=== PATIENT | female | born 1940 | race Caucasian/White ===

== ENCOUNTER 2019-05-30 19:41 | Inpatient (IN) | payer MEDICARE ==
[~2019-05-30] VITALS: Ht 165.1 cm; Wt 105.6 kg
[~2019-05-30 19:41] MED LIST: ALBUTEROL2.5 MG/0.5 INH; ALLOPURINOL 30300 M2 PO; APAP650 PO; ARTIFICIAL TEAR15 M3 OP; BENTYL20 MG; BYSTOLIC 5 MG5 M1 PO; CELEBREX 200 M200 M1 PO; COMPAZINE10 MG PO; CYMBALTA20 MG PO; FLAGYL500 MG PO; GLUCOTROL5 MG PO; HALDOL5 MG/1 ML IV; HUMALOG100 UNIT/1 SUBQ; HYDROCODONE-AP1 EAC6 PO; METFORMIN HCL500 MG PO; MIRALAX17 GM PO; NORVASC5 M1 PO; ONDANSETRON HCL4 M2 PO; OXYCODONE HCL 55 MG PO; PROTONIX40 M1 PO; PROTONIX40 M4 PO; VENTOLIN HFA 1818 GM INH; VENTOLIN HFA INH8 GM INH; VITAMIN D1000 UNI1 PO
[2019-05-30 19:47] VITALS: BP 156/58
[2019-05-30 20:39] LABS: ABSOLUTE BASOPHILS 0.1 thou/uL (0.0-0.2); ABSOLUTE EOSINOPHILS 0.1 thou/uL (0.0-0.7); ABSOLUTE LYMPHOCYTES 1.6 thou/uL (0.8-5.3); ABSOLUTE MONOCYTES 0.8 thou/uL (0.0-1.2); ABSOLUTE NEUTROPHILS 10.1 thou/uL (1.6-8.1); BASOPHILS 0.6 %; HEMATOCRIT 37.8 % (37.0-47.0); HEMOGLOBIN 11.8 gm/dL (12.0-15.0); LYMPHOCYTES 12.2 %; MCH 25.8 pg (26.0-34.0); MCHC 31.2 g/dL (28.0-37.0); MCV 82.7 fL (80.0-100.0); MONOCYTES 6.2 %; MPV 8.8 fl. (7.2-11.1); NUCLEATED RBCS 0 /100WBC; PLATELET COUNT* 297 thou/uL (150-400); RBC 4.57 mil/uL (4.20-5.00); RDW-CV 18.6 % (10.5-14.5); WBC 12.7 thou/uL (4.0-11.0)
[2019-05-30 20:47] LABS: ANION GAP 8 mmol/L (7-16); BUN 22 mg/dL (7-18); CALCIUM 9.6 mg/dL (8.5-10.1); CHLORIDE 99 mmol/L (98-107); CO2 29 mmol/L (21-32); CREATININE 0.9 mg/dL (0.6-1.3); GLUCOSE 132 mg/dL (70-99); POTASSIUM 4.1 mmol/L (3.5-5.1); SODIUM 136 mmol/L (136-145)
[2019-05-30 20:49] LABS: APTT 30.7 Seconds (25.0-31.3); INR 1.1; PROTIME 10.8 Seconds (9.20-11.50)
[2019-05-30 20:59] LABS: URINE BILIRUBIN NEGATIVE (Negative); URINE BLOOD NEGATIVE (Negative); URINE CLARITY CLEAR; URINE COLOR YELLOW; URINE GLUCOSE-RANDOM NEGATIVE (Negative); URINE KETONES NEGATIVE (Negative); URINE LEUKOCYTES-REFLEX NEGATIVE (Negative); URINE NITRITE-REFLEX NEGATIVE (Negative); URINE PROTEIN NEGATIVE (Negative); URINE SPECIFIC GRAVITY 1.025 (1.005-1.030); URINE UROBILINOGEN 0.2 E.U./dl (0.2-1.0)
--- NOTE | 2019-05-30 21:00 | NUR ---
ILEOSTOMY TO RIGHT ABD APPLIANCE CLEAN/DRY WITH LIQUID STOOL IN BAG
[2019-05-30 21:02] LABS: ALBUMIN 3.6 g/dL (3.4-5.0); ALKALINE PHOSPHATASE 81 U/L (46-116); CK-MB MASS 2.2 ng/mL (<0.5-3.6); NT-PRO BRAIN NAT PEPTIDE 270 pg/mL (<300); SGOT 16 U/L (15-37); SGPT 28 U/L (30-65); TOTAL BILIRUBIN 0.5 mg/dL (<0.1-1.0); TOTAL PROTEIN 7.5 g/dL (6.4-8.2); TROPONIN-I LEVEL <0.06 ng/mL (<0.06)
[2019-05-30 22:30] VITALS: BP 150/62
[2019-05-30 22:45] VITALS: BP 157/64
[2019-05-31] VITALS: BP 141/94
[2019-05-31 04:00] VITALS: BP 152/55
[2019-05-31] MEDS ORDERED: COZAAR 25 MG TA25 M1 PO (05:44)
[2019-05-31] MEDS ORDERED: LANTUS100 UNIT/M SUBQ (05:45)
[2019-05-31] MEDS ORDERED: AMARYL2 MG PO (05:45)
[2019-05-31] MEDS ORDERED: PLAVIX 75 MG TA75 M1 PO (05:46)
[2019-05-31] MEDS ORDERED: ALLOPURINOL 10100 M1 PO (05:46)
[2019-05-31] MEDS ORDERED: LIPITOR10 MG PO (05:47)
[2019-05-31] MEDS ORDERED: TYLENOL325 MG PO (05:48)
--- NOTE | 2019-05-31 06:47 | NUR ---
Patient progressing towards goals: vss on room air. Patient oriented to person, place, and partially situation. Patient denies pain and discomfort. Incontinent of urine. Incontinence check and luli care provided with repositioning q2h. Patient and daughter did not bring list of medications or bottles. Daughter recalled medications to the best of her ability and were updated in system per her recollection. call light within reach
[2019-05-31 08:00] VITALS: BP 171/63
--- NOTE | 2019-05-31 11:30 | NUR ---
MET WITH PT AND DTR/ANGELIC TO DISCUSS HOME SITUATION DC PLANNING. PT LIVES WITH ANGELIC, HER S/O AND SON. PT IS NORMALLY ABLE TO AMBULATE INDEPENDENTLY, HAS WALKER AND CANE IF NEEDED. SHE IS ABLE TO HELP WITH FOLDING LAUNDRY, DRESS HERSELF BUT DTR ASSISTS WITH SHOWER. PT IS CURRENT WITH [facility] . SHE FOLLOWS WITH DR KULKARNI BUT THEY ARE SEEKING NEW PCP, GAVE LIST AND DISCUSSED. PT DOESN'T HAVE A DPOA, GAVE INFO AND WILL DISCUSS MORE WITH PT ONCE SHE IS MORE ALERT. ALSO DISCUSSED MEDICAID, DTR HAS QUESTIONS, OFFERED [facility] TO ASSIST, SHE AGREED. CALLED AND LEFT VMAIL AND FAXED FACE SHEET TO [facility]. DTR STATED PT WILL GO HOME AT DC, NOT SNF, 'NEVER WANT THAT.' DTR IS A SPEECH THERAPIST. WILL FOLLOW
--- NOTE | 2019-05-31 11:49 | EKG ---
[place] [address] ELECTROCARDIOGRAM REPORT Name: RAJWINDER KRAUSE Room: [address] ADM IN M.R.#: [id number] Admission: 05/30/19 Attend Phys: Leticia Hills MD Discharge: Date of : 38 Report #: [id number] THIS REPORT FOR: //name// [facility] ED Test Date: 2019-05-30 Test Time: 19:47:44 Pat Name: RAJWINDER KRAUSE Department: Room: [facility] Gender: F Set Up Technician: SAJI : 1940 Requested By: Jori Shabazz Order Number: [id number] MD: Rocky Sands Measurements Intervals [place] Rate: 83 P: -54 [place]: 148 QRS: -41 QRSD: 105 T: 126 QT: 394 QTc: 463 Interpretive Statements Sinus or ectopic atrial rhythm LVH with secondary repolarization abnormality Anterior infarct, old possible Compared to ECG 03/23/2016 18:41:14 Early repolarization now present Myocardial infarct finding still present Electronically Signed On 05-31-2019 11:49:22 CDT by Rocky Sands [email or web address] <ELECTRONICALLY SIGNED> By: Rocky Sands MD, [facility] 05/31/19 1149 1947 46 Rocky Sands MD, [facility] /EPI
[2019-05-31 12:22] LABS: BE 1.5 mmol/L (-2 to +3); PCO2 49.1 mmHg (35.0-45.0); PO2 69.1 mmHg (75.0-100.0); pH 7.365 (7.340-7.450)
[2019-05-31 12:46] VITALS: BP 139/49
[2019-05-31 16:00] VITALS: BP 148/67
--- NOTE | 2019-05-31 17:59 | NUR ---
PATIENT TAKING PO WELL DENIES DISTRESS VERY TIRED ACTING AROUSES EASILY. PROGRESSING SLOWLY.
[2019-05-31 20:00] VITALS: BP 161/68
[2019-06-01] VITALS: BP 166/71
[2019-06-01 04:00] VITALS: BP 171/62
[2019-06-01 04:34] LABS: ABSOLUTE EOSINOPHILS 0.3 thou/uL (0.0-0.7); ABSOLUTE LYMPHOCYTES 1.6 thou/uL (0.8-5.3); ABSOLUTE MONOCYTES 0.5 thou/uL (0.0-1.2); ABSOLUTE NEUTROPHILS 4.8 thou/uL (1.6-8.1); BASOPHILS 0.6 %; EOSINOPHILS 4.1 %; LYMPHOCYTES 22.6 %; MCHC 31.2 g/dL (28.0-37.0); MCV 83.5 fL (80.0-100.0); MONOCYTES 7.4 %; MPV 8.8 fl. (7.2-11.1); NUCLEATED RBCS 0 /100WBC; PLATELET COUNT* 226 thou/uL (150-400); POLYS 65.3 %; RBC 3.83 mil/uL (4.20-5.00); RDW-CV 18.4 % (10.5-14.5); WBC 7.3 thou/uL (4.0-11.0)
[2019-06-01 05:08] LABS: CALCIUM 8.7 mg/dL (8.5-10.1); CREATININE 0.9 mg/dL (0.6-1.3)
[2019-06-01 08:00] VITALS: BP 198/70
[2019-06-01 11:46] VITALS: BP 153/58
[2019-06-01 15:14] VITALS: BP 152/52
--- NOTE | 2019-06-01 18:33 | NUR ---
RECEIVED REPORT FROM WILL RN. ASSUMED CARE OF PT AROUND 729. PT A&O X4, BUT CONFUSED AND FORGETFUL AT TIMES. UTILITY BILL COMPLAINTS INVESTIGATOR IN PLACE TRACING SR WITH NO CHANGES THIS SHIFT. AM ASSESSMENT AND VITALS COMPLETED CHARTED. IV INTACT. MEDS PER EMAR. PT RECEIVED TYLENOL THIS AM FOR C/O BACK PAIN, EFFECTIVE. PT UP WITH ASSIST TO BEDSIDE COMMODE, ALSO INCONTINENT. ILLEOSTOMY EMPTIED, OUTPUT THICK LIQUID BROWN. PT TOLERATING DIET, APPETITE GOOD. FAMILY VISITED THIS AFTERNOON. EEG COMPLETED, SEE REPORT. PLAN IS FOR PT TO HAVE MRI MONDAY. PT CURRENTLY SITTING UP IN BEDSIDE CHAIR. FALL PRECAUTIONS IN PLACE. CALL LIGHT IS WITHIN REACH. HOURLY ROUDNING PERFORMED.
[2019-06-01 20:00] VITALS: BP 165/73
[2019-06-02] VITALS: BP 142/46
[2019-06-02 04:51] LABS: ABSOLUTE EOSINOPHILS 0.4 thou/uL (0.0-0.7); ABSOLUTE LYMPHOCYTES 1.9 thou/uL (0.8-5.3); ABSOLUTE MONOCYTES 0.5 thou/uL (0.0-1.2); ABSOLUTE NEUTROPHILS 4.4 thou/uL (1.6-8.1); BASOPHILS 0.4 %; EOSINOPHILS 5.2 %; HEMATOCRIT 31.8 % (37.0-47.0); HEMOGLOBIN 9.9 gm/dL (12.0-15.0); LYMPHOCYTES 26.2 %; MCH 26.2 pg (26.0-34.0); MCHC 31.2 g/dL (28.0-37.0); MCV 83.9 fL (80.0-100.0); MONOCYTES 6.7 %; MPV 8.7 fl. (7.2-11.1); NUCLEATED RBCS 0 /100WBC; PLATELET COUNT* 235 thou/uL (150-400); POLYS 61.5 %; RBC 3.79 mil/uL (4.20-5.00); RDW-CV 18.6 % (10.5-14.5); WBC 7.2 thou/uL (4.0-11.0)
[2019-06-02 05:04] LABS: ANION GAP 4 mmol/L (7-16); BUN 16 mg/dL (7-18); CALCIUM 9.4 mg/dL (8.5-10.1); CHLORIDE 106 mmol/L (98-107); CHOLESTEROL 127 mg/dL (<200); CO2 31 mmol/L (21-32); CREATININE 0.9 mg/dL (0.6-1.3); GLUCOSE 116 mg/dL (70-99); HDL CHOLESTEROL 41 mg/dL (>40); LDL CHOLESTEROL 45 mg/dL (<100); MAGNESIUM 1.7 mg/dL (1.8-2.4); PHOSPHORUS* 3.2 mg/dL (2.5-4.9); POTASSIUM 3.8 mmol/L (3.5-5.1); SODIUM 141 mmol/L (136-145); TC:HDL 3.1 Ratio (Not establshd); TRIGLYCERIDE 206 mg/dL (<150); VLDL 41 mg/dL (<40)
[2019-06-02 05:05] LABS: SERUM ASSESSMENT Slight Lipemia
--- NOTE | 2019-06-02 06:54 | NUR ---
PT BP ELEVATED APPROX 0400 GIVEN MEDICATION, BP RECHECK BP WAS TRENDING DOWN.
[2019-06-02 08:00] VITALS: BP 164/55
[2019-06-02 11:20] VITALS: BP 177/60
[2019-06-02 15:14] VITALS: BP 198/75
--- NOTE | 2019-06-02 16:46 | NUR ---
PT UP IN CHAIR MOST OF SHIFT. PT ASSISTED TO BSC. TOLERATING PO WELL. BP ELEVATED,CHANGE IN MEDS PER .PLAN FOR MRI IN AM.
[2019-06-02 20:00] VITALS: BP 197/71
[2019-06-02 23:06] LABS: GLYCOHEMOGLOBIN (HGB A1C) 7.5 % (4.8-5.6)
[2019-06-03] VITALS: BP 180/68
[2019-06-03 04:00] VITALS: BP 219/78
--- NOTE | 2019-06-03 07:35 | NUR ---
PT BP ELEVATED THROUGHOUT SHIFT, MEDICATION GIVEN WITH A DECREASE IN BLOOD PRESSURE NOTED. INFORMATION PASSED ON.
[2019-06-03 08:00] VITALS: BP 147/56
--- NOTE | 2019-06-03 10:00 | NUR ---
ASSUMED CARE OF PT AT 0730. PT RESTING IN RECLINER WAITING FOR BREAKFAST. PT A&0X4, FORGETFUL AT TIMES. PT DENIES ANY PAIN OR SHORTNESS OF BREATH AT THIS TIME. PT TRACING SR ON THE MALT HOUSE LOADER. ON 2L NC SAT 97%. ILEOSTOMY TO DEPENDENT DRAINAGE. PT UP WITH 1 ASSIST AND WALKER TO BATHROOM. PT GOAL FOR TODAY IS COMPLETE MRI HEAD, MAINTAIN SBP LESS THAN 150, MEDICATION ADJUSTMENTS FOR BLOOD PRESSURE AND WORK WITH PT AND OT. AM ASSESSMENT CHARTED. MEDICATIONS PER DEC. PT REPOSITIONED EVERY 2 HOURS FOR COMFORT. HOURLY ROUNDING OBSERVED. BED IN LOW POSITION. CALL LIGHT WITHIN REACH. WILL CONTINUE PLAN OF CARE.
[2019-06-03 11:25] VITALS: BP 167/70
[2019-06-03 12:00] VITALS: BP 172/59
--- NOTE | 2019-06-03 16:31 | NUR ---
I have reviewed the documentation by SADIE ALDRICH from TODAY to 06/03/19 and I concur with it. SANDRA CHONG
[2019-06-03 20:00] VITALS: BP 178/75
[2019-06-04] VITALS (7 sets, daily range): BP systolic 138–180; BP diastolic 51–68
--- NOTE | 2019-06-04 01:20 | NUR ---
PT ALERT ORIENTED. TRANSFERED FROM BED TO CHAIR WITH 2 PERSON ASSIST. INCONTINENT OF URINE. TELEMETRY SHOWS SR. MN BP 180/64 HYDRALAZINE GIVEN. TELEMETRY SHOWS SR. O2 AT 2 LITERS NC.
--- NOTE | 2019-06-04 04:27 | NUR ---
BP DOWN TO 166/57 AFTER HYDRALAZINE. RESTING QUIETLY.
--- NOTE | 2019-06-04 10:00 | NUR ---
ASSUMED CARE OF PT AT 0730. PT SITTING IN RECLINER WAITING FOR BREAKFAST. PT A&0X4, FORGETFUL AT TIMES. TRACING SR ON THE SAWMILL MANAGER. PT COMPLAINS OF PAIN TO HEAD, TREATED WITH PRN TYLENOL WITH RELIEF. PT ON 2L NC SAT 98%. PT UP WITH 1 ASSIST AND WALKER TO BATHROOM. PT GOAL FOR TODAY IS TITRATE OXYGEN AND DISCHARGE PLANNING TO HOME. AM ASSESSMENT CHARTED. MEDICATIONS PER MAR. PT REPOSITIONED EVERY 2 HOURS FOR COMFORT. HOURLY ROUNDING OBSERVED. BED IN LOW POSITION. BED ALARM IN PLACE. FALL PRECAUTIONS IN PLACE. CALL LIGHT WITHIN REACH. WILL CONTINUE PLAN OF CARE.
[2019-06-04] MEDS ORDERED: LIPITOR10 MG PO (12:14)
[2019-06-04] MEDS ORDERED: IRON325 PO (12:14)
[2019-06-04] MEDS ORDERED: NORVASC10 MG PO (12:15)
[2019-06-04] MEDS ORDERED: CHLORTHALIDONE25 MG PO (12:15)
[2019-06-04] MEDS ORDERED: COZAAR 25 MG TA25 M1 PO (12:16)
[2019-06-04] MEDS ORDERED: SYNTHROID50 MCG PO (12:17)
--- NOTE | 2019-06-04 15:20 | NUR ---
Pt to dc home today with dtr and HH services to follow. SW met with pt and discussed plan; pt said she feels confident in going home today. SW called pt dtr and discussed safe dc planning; pt dtr to be here to provide pt ride home. REJI discussed pt current with [facility] and pt and pt dtr want to continue with [facility]. SW faxed orders to resume care and referral info. No other dc needs expressed.
--- NOTE | 2019-06-04 17:16 | NUR ---
DISCHARGE ORDERS RECEIVED. DISCHARGE INSTRUCTIONS, CARE NOTES, SCRIPTS AND FOLLOW UP APPTS GIVEN TO PT. PT COMMUNICATES UNDERSTANDING OF DISCHARGE TEACHING. DAUGHTER AT BEDSIDE DURING EDUCATION. PIPELINER REMOVED. POWER PORT DEACCESSED WITH HEPARIN AND REMOVED WITHOUT DIFFICULTIES. PT HAD 02 REST AND EXERCISE SAT AND PT DOESNT REQUIRE OXYGEN. PT DISCHARGED WITH ALL BELONGINGS AND PAPERWORK VIA WHEELCHAIR WITH NURSING STAFF TO DAUGHTERS OWN PERSONAL VEHICLE.
--- NOTE | 2019-06-06 10:45 | EEG ---
[address] [address] EEG STUDY REPORT Name: RAJWINDER KRAUSE Room: [address] IN .R#: [id number] Admission: 05/30/19 Attend Phys: Leticia Hills MD Discharge: 06/04/19 Date of : 38 Report #: [id number] THIS REPORT FOR: //name// CC: Leticia Tracy DATE OF SERVICE: 06/01/2019 REASON FOR STUDY: This patient is being evaluated for altered mental status. FINDINGS: EEG was done by placing the electrode by 10-20 system of electrode placement. Both referential and sequential montages were used for recording. Background activity in this patient's EEG is up to 9 Hz and 30 microvolt. The patient went to sleep and that was associated with bilateral slowing and vertex sharp waves. Photic stimulation was unremarkable. Throughout the record, no active epileptiform activity was noticed. IMPRESSION: This patient's EEG is intermixed with moderate amount of intermixed slowing. That is a nonspecific abnormality, which can occur with dementia, effect of psychotropic medications, or encephalopathy. Clinical correlation is recommended. Thank you very much for this referral. <ELECTRONICALLY SIGNED> By: Trent Almonte MD 06/06/19 1045 1710 [id number] Almonte MD /nt
--- NOTE | 2019-06-06 10:45 | CON ---
[facility] [address] [place] [address] CONSULTATION Name: RAJWINDER KRAUSE Room: [address] IN M.R.#: [id number] Admission: 05/30/19 Attend Phys: Leticia Hills MD Discharge: 06/04/19 Date of : 38 Report #: [id number] THIS REPORT FOR: //name// CC: Leticia Tracy DATE OF SERVICE: 05/31/2019 HISTORY OF PRESENT ILLNESS: This is a 78-year-old female patient who is not able to provide much history. Initially when I saw this patient, the patient is not able to provide any history. Then I called the patient's daughter and discussed the patient with her. She said that the patient is becoming weaker in the last 3-4 days. She is also becoming somewhat confused. She does that when she gets bladder infection. She sometimes uses a walker but she is getting weaker and weaker. She had an MRI done. REVIEW OF SYSTEMS: Indicates she has a history of hypertension, GERD, gout, diabetes mellitus, has some problem with sigmoid mass. She has a portal. This was a relevant 14-point review of system. PAST MEDICAL HISTORY: Positive for possible transient ischemic attack that was in 2015, but they never found any definite evidence for this. FAMILY HISTORY: Negative for early age strokes. SOCIAL HISTORY: She lives with her daughter. According to her she does not drink any alcohol. PHYSICAL EXAMINATION: Indicate that she is alert. She is responsive. She can follow simple commands, but her memory is poor. Her fund of knowledge is poor. She is slow in responding. Cranial nerve examination 2-12 was attempted. It is very difficult to tell. She moves all 4 extremities. Her position sense appeared to be present. Reflexes are somewhat diminished. There is no meningeal sign. There is no carotid bruit. There is no thyroid mass. She is moderately built individual. Pulses are difficult to feel. White count is 12.7. No respiratory difficulty. Cardiac examination is unremarkable. Blood pressure is 139/49, respirations 16, pulse 81, temperature is 98.3. She did have a CT scan of the head which showed some atrophy. IMPRESSION: Difficult to form in this patient, but with increased white count this is probably encephalopathy. SCRAP CRANE OPERATOR infection is unlikely, but cannot be fully excluded. We will see if she improves with antibiotics. Because of the difficulty with walking, I will get an MRI of the brain and spine. If she continued to improve, we may not have to do much. If she does not improve much, [place] [address] CONSULTATION Name: RAJWINDER KRAUSE Room: [address] IN .R.#: [id number] Admission: 05/30/19 Attend Phys: Leticia Hills MD Discharge: 06/04/19 Date of : 38 Report #: [id number] then we may have to do further workup. Dr. Wen will follow up this patient with you from tomorrow. <ELECTRONICALLY SIGNED> By: Trent Almonte MD 06/06/19 1045 1444 [id number] Almonte MD /nt
== END 2019-06-04 17:17 | disposition home health service (06) | DRG 70 ==
LOC: M.ERS 19:41 → M.TBA-ER 21:07 → M.2W 21:07
PROVIDERS: Family Medicine; Internal Medicine; ADMIT Internal Medicine
DX: G93.41 Metabolic encephalopathy (principal); R65.11 Systemic inflammatory response syndrome (SIRS) of non-infectious origin with acute organ dysfunction; E66.2 Morbid (severe) obesity with alveolar hypoventilation; K21.9 Gastro-esophageal reflux disease without esophagitis; M10.9 Gout, unspecified; E86.0 Dehydration; I12.9 Hypertensive chronic kidney disease with stage 1 through stage 4 chronic kidney disease, or unspecified chronic kidney disease; N18.3 Chronic kidney disease, stage 3 (moderate); E11.22 Type 2 diabetes mellitus with diabetic chronic kidney disease; D50.9 Iron deficiency anemia, unspecified; E83.42 Hypomagnesemia; E78.5 Hyperlipidemia, unspecified; E03.9 Hypothyroidism, unspecified; F03.90 Unspecified dementia, unspecified severity, without behavioral disturbance, psychotic disturbance, mood disturbance, and anxiety; Z88.0 Allergy status to penicillin; Z79.899 Other long term (current) drug therapy; Z91.19 Patient's noncompliance with other medical treatment and regimen; Z85.038 Personal history of other malignant neoplasm of large intestine; Z90.49 Acquired absence of other specified parts of digestive tract; Z93.2 Ileostomy status; Z68.38 Body mass index [BMI] 38.0-38.9, adult

== ENCOUNTER 2019-11-25 13:48 | Observation (INO) | payer MEDICARE ==
[~2019-11-25] VITALS: Ht 165.1 cm; Wt 103.9 kg
[~2019-11-25 13:48] MED LIST changes: +ALLOPURINOL 10100 M1 PO; +AMARYL2 MG PO; +CHLORTHALIDONE25 MG PO; +COZAAR 25 MG TA25 M1 PO; +IRON325 PO; +LANTUS100 UNIT/M SUBQ; +LIPITOR10 MG PO; +NORVASC10 MG PO; +PLAVIX 75 MG TA75 M1 PO; +SYNTHROID50 MCG PO; -VENTOLIN HFA 1818 GM INH
[2019-11-25 14:05] VITALS: BP 141/62
[2019-11-25 14:17] LABS: ABSOLUTE BASOPHILS 0.1 thou/uL (0.0-0.2); ABSOLUTE EOSINOPHILS 0.2 thou/uL (0.0-0.7); ABSOLUTE LYMPHOCYTES 1.8 thou/uL (0.8-5.3); ABSOLUTE MONOCYTES 0.5 thou/uL (0.0-1.2); ABSOLUTE NEUTROPHILS 5.6 thou/uL (1.6-8.1); BASOPHILS 1.1 %; EOSINOPHILS 1.8 %; HEMATOCRIT 41.5 % (37.0-47.0); HEMOGLOBIN 13.7 gm/dL (12.0-15.0); LYMPHOCYTES 22.1 %; MCH 30.8 pg (26.0-34.0); MCHC 32.9 g/dL (28.0-37.0); MCV 93.4 fL (80.0-100.0); MONOCYTES 6.2 %; NUCLEATED RBCS 0 /100WBC; PLATELET COUNT* 268 thou/uL (150-400); POLYS 68.8 %; RBC 4.44 mil/uL (4.20-5.00); RDW-CV 16.2 % (10.5-14.5); WBC 8.2 thou/uL (4.0-11.0)
[2019-11-25 14:27] LABS: CALCIUM 9.1 mg/dL (8.5-10.1); CREATININE 1.1 mg/dL (0.6-1.3); POTASSIUM 4.1 mmol/L (3.5-5.1)
[2019-11-25 14:37] LABS: ALBUMIN 3.8 g/dL (3.4-5.0); TOTAL BILIRUBIN 0.2 mg/dL (<0.1-1.0); TOTAL PROTEIN 7.6 g/dL (6.4-8.2)
[2019-11-25 14:57] LABS: INR 1.1; PROTIME 10.8 Seconds (9.20-11.50)
[2019-11-25 15:51] LABS: URINE BILIRUBIN NEGATIVE (Negative); URINE BLOOD NEGATIVE (Negative); URINE CLARITY CLEAR; URINE COLOR YELLOW; URINE GLUCOSE-RANDOM 2+ (Negative); URINE KETONES NEGATIVE (Negative); URINE LEUKOCYTES-REFLEX NEGATIVE (Negative); URINE NITRITE-REFLEX NEGATIVE (Negative); URINE PROTEIN NEGATIVE (Negative); URINE SPECIFIC GRAVITY 1.025 (1.005-1.030); URINE UROBILINOGEN 0.2 E.U./dl (0.2-1.0)
[2019-11-25] MEDS ORDERED: PLAVIX 75 MG TA75 MG PO (16:52)
[2019-11-25] MEDS ORDERED: ABILIFY 2 MG2 M1 PO (16:52)
[2019-11-25] MEDS ORDERED: OXYBUTYNIN 5 MG5 M2 PO (16:53)
[2019-11-25] MEDS ORDERED: LEVEMIR100 UNIT/1 (16:53)
[2019-11-25] MEDS ORDERED: VITAMIN D (16:54)
[2019-11-25] MEDS ORDERED: MULTIVITAMIN (16:54)
[2019-11-25 18:49] LABS: CHOLESTEROL 179 mg/dL (<200); HDL CHOLESTEROL 37 mg/dL (>40); TC:HDL 4.8 Ratio (Not establshd); TRIGLYCERIDE 414 mg/dL (<150); VLDL 83 mg/dL (<40)
[2019-11-25 18:51] LABS: SERUM ASSESSMENT Clear
--- NOTE | 2019-11-25 20:00 | NUR ---
RECEIVED REPORT AND ASSUMED CARE OF PT. ASSESSMENT COMPLETED. PT BOARDING IN ER. CHAIR MECHANIC ON SHOWING SR. ILEOSTOMY EMPTIED OF 300 LIQ STOOL. FAMILY AT BEDSIDE AND DGT STATES PT'S NOSE SEEMS ASYMETRICAL TO HER. WILL CONT TO MONITOR AND ASSIST NEEDED.
[2019-11-26] VITALS (8 sets, daily range): BP systolic 120–187; BP diastolic 53–76
--- NOTE | 2019-11-26 05:10 | NUR ---
SLEPT WELL TONIGHT. ASSISTED TO BSC TO VOID. NO CHANGE IN ASSESSMENT. CONT TO SHOW SR. REMAINS BOARDING IN ER, HOURLY ROUNDING OBSERVED.
--- NOTE | 2019-11-26 11:13 | NUR ---
SPOKE WITH DR. GUAJARDO VIA PHONE, LIZA SINGH WITH REGULAR DIET.
--- NOTE | 2019-11-26 13:17 | NUR ---
CM ASSESSMENT: VISITED WITH PT IN THE ED. PT ON O2 AND IS PLANNED TO BE DISCHARGED TODAY. AWAITING RT EXERCISE STUDY TO SEE IF PT QUALIFIES FOR HOME O2. WILL DISCUSS HH OPTIONS WITH DTR. PT LIVES WITH HER DTR-RECENTLY MOVED HERE FROM [place]. PT USES A CANE AND OCASSIONALLY A WALKER.
--- NOTE | 2019-11-26 13:44 | NUR ---
PT PROVIDED WALKER FOR EX OX WITH RT.
--- NOTE | 2019-11-26 14:16 | NUR ---
PT DOES NOT QUALIFY FOR HH. PT AMBULATES STEADILY WITH WALKER. NO HH NEEDS.
[2019-11-26] MEDS ORDERED: TYLENOL325 MG PO (15:34)
[2019-11-26] MEDS ORDERED: VENTOLIN HFA 1818 GM INH (15:35)
--- NOTE | 2019-11-26 17:06 | NUR ---
I have reviewed the documentation by OTF HIGGINS from 11/26/19 to 11/26/19 and I concur with it. AMARILYS PABLO
--- NOTE | 2019-11-27 13:57 | EKG ---
[place] [address] ELECTROCARDIOGRAM REPORT Name: RAJWINDER KRAUSE Room: [address]#: [id number] Admission: 11/25/19 Attend Phys: Jolly Herrera Discharge: 11/26/19 Date of : 38 Date of Service: 11/25/19 1354 Report #: [id number] THIS REPORT FOR: cc: YESSENIA METCALF NP, RUTENDO NP Holkins, John M. 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[facility] : 1940 Requested By: Lou Sosa Order Number: [id number] : Rocky Sands Measurements Intervals [place] Rate: 87 P: -73 [place]: 167 QRS: -47 QRSD: 104 T: 107 QT: 379 QTc: 456 Interpretive Statements Sinus or ectopic atrial rhythm LAD, consider left anterior fascicular block Abnormal R-wave progression, late transition LVH with secondary repolarization abnormality Compared to ECG 05/30/2019 19:47:44 Myocardial infarct finding no longer present Electronically Signed On 11-26-2019 12:40:41 REVERSER by Rocky Sands [email or web address] <ELECTRONICALLY SIGNED> By: Rocky Sands MD, [facility] 11/26/19 1240 1354 1354 Rocky Sands MD, [facility] /EPI
== END 2019-11-26 17:30 | disposition home or self-care (01) ==
LOC: M.ERS 13:48 → M.TBA-ER 16:53
PROVIDERS: Personal Emergency Response Attendant; ADMIT Internal Medicine
DX: R42 Dizziness and giddiness (principal); R29.810 Facial weakness; E11.9 Type 2 diabetes mellitus without complications; I10 Essential (primary) hypertension; E78.5 Hyperlipidemia, unspecified; E86.0 Dehydration; K21.9 Gastro-esophageal reflux disease without esophagitis; Z86.73 Personal history of transient ischemic attack (TIA), and cerebral infarction without residual deficits; G43.909 Migraine, unspecified, not intractable, without status migrainosus

== ENCOUNTER 2021-03-25 21:45 | Inpatient (IN) | payer MEDICARE ==
[~2021-03-25] VITALS: Ht 157.5 cm; Wt 102.1 kg
[~2021-03-25 21:45] MED LIST changes: +ABILIFY 2 MG2 M1 PO; -BYSTOLIC 5 MG5 M1 PO; +BYSTOLIC10 MG PO; +LEVEMIR100 UNIT/1 SUBQ; +MULTIVITAMIN; +OXYBUTYNIN 5 MG5 M2 PO; +PLAVIX 75 MG TA75 MG PO; +TYLENOL EXTRA500 MG PO; +VENTOLIN HFA 1818 GM INH; +VITAMIN D
[2021-03-25 21:58] VITALS: BP 147/59
[2021-03-25 23:01] LABS: ABSOLUTE LYMPHOCYTES 0.8 thou/uL (0.8-5.3); ABSOLUTE MONOCYTES 0.7 thou/uL (0.0-1.2); ABSOLUTE NEUTROPHILS 7.4 thou/uL (1.6-8.1); BASOPHILS 0.5 %; EOSINOPHILS 0.5 %; HEMATOCRIT 36.4 % (37.0-47.0); HEMOGLOBIN 12.3 gm/dL (12.0-15.0); LYMPHOCYTES 8.5 %; MCH 30.7 pg (26.0-34.0); MCHC 33.8 g/dL (28.0-37.0); MCV 90.9 fL (80.0-100.0); MONOCYTES 8.1 %; MPV 8.6 fl. (7.2-11.1); NUCLEATED RBCS 0 /100WBC; PLATELET COUNT* 229 thou/uL (150-400); POLYS 82.4 %; RDW-CV 15.3 % (10.5-14.5); WBC 8.9 thou/uL (4.0-11.0)
[2021-03-25 23:09] LABS: CALCIUM 9.7 mg/dL (8.5-10.1); CREATININE 1.1 mg/dL (0.6-1.3); POTASSIUM 4.2 mmol/L (3.5-5.1)
[2021-03-25 23:13] LABS: ALBUMIN 3.7 g/dL (3.4-5.0); MAGNESIUM 1.7 mg/dL (1.8-2.4); TOTAL BILIRUBIN 0.2 mg/dL (<0.1-1.0); TOTAL PROTEIN 7.6 g/dL (6.4-8.2)
[2021-03-25 23:25] LABS: URINE BLOOD 3+ (Negative); URINE COLOR YELLOW; URINE GLUCOSE-RANDOM NEGATIVE (Negative); URINE KETONES TRACE (Negative); URINE LEUKOCYTES 2+ (Negative); URINE NITRITE POSITIVE (Negative); URINE PROTEIN 2+ (Negative); URINE SPECIFIC GRAVITY 1.025 (1.005-1.030); URINE UROBILINOGEN 0.2 E.U./dl (0.2-1.0)
[2021-03-25 23:27] LABS: ICTOTEST (BILI CONFIRMATORY) Negative (Negative); URINE BILIRUBIN 1+ (Negative); URINE CLARITY CLOUDY
[2021-03-25 23:32] LABS: BACTERIA >30 Many /HPF (None Seen); CASTS None Seen /LPF (None Seen); CRYSTALS None Seen /LPF (None Seen); MUCUS 0-3 Light strn/LPF (None Seen); SQUAMOUS 0-3 Few /LPF (0-3); URINE RBC >20 Many /HPF (0-2); URINE WBC >25 Many /HPF (0-5); WBC CLUMPS Moderate (None Seen)
[2021-03-25] MEDS ORDERED: MACROBID 100 M100 MG PO (23:53)
[2021-03-26 00:15] VITALS: BP 140/58
[2021-03-26 01:09] VITALS: BP 125/58
--- NOTE | 2021-03-26 01:29 | NUR ---
0030 ALERT AND ORIENTED X 4 FEMALE PATIENT TO ROOM 102 BY CART FROM ER IN STABLE CONDITION. FAMILY STATED TO ER THAT PATIENT WAS FORGETFUL AT TIMES BUT THIS WAS NOT SEEN DURING ADMISSION. TRANFERED FROM CART TO BED WITH MIN/MOD ASSIST SUPINE TO SIT, MIN SIT TO STAND AND CGA TO TURN TO BED AND LIE DOWN. NOTED RIGHT CHEST PORTACATH PRESENT AND HAS BEEN ACCESSED WITH FLUIDS RUNNING. ILEOSTOMY RLQ WITH OSTOMY POUCH INTACT. WEARING A BRIEF. SCANT PINKNESS PANNUS AND BILAT GROINS. SOUR ODOR. WIPES USED TO CLEAN AREAS. SKIN INTACT. ADMISSION ROUTINES IN PROGRESS. VITAL SIGNS STABLE. SCD'S APPLIED PER PROTOCOL. FALL PRECAUTIONS IN PLCE. CONTINUE TO MONITOR.
[2021-03-26] MEDS ORDERED: AZO CRANBERRY1 EACH PO (01:42)
--- NOTE | 2021-03-26 04:48 | NUR ---
PATIENT RESTING QUIETLY FROM ARRIVAL TO UNIT. HAS DENIED NAUSEA. NO VOMITING. NO PAIN. FALL PRECAUTIONS IN PLACE. CONTINUE TO MONITOR.
[2021-03-26 08:00] VITALS: BP 168/78
--- NOTE | 2021-03-26 14:09 | NUR ---
Pt is A&O. Resides at home with dtr. Independent. Pt has a walker and cane that she can use for mobility. Hx of [facility]. No hx of SNF. Pt requires some assistance with ADLs. Anticipate dc to home tomorrow. If Pt needs HH, fax facesheet, H&P and orders to [facility] [phone]
--- NOTE | 2021-03-26 16:39 | EKG ---
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[place] : 1940 Requested By: Tawanna Peoples Order Number: [id number] MD: Rocky Sands Measurements Intervals [place] Rate: 73 P: 47 ID: 163 QRS: -38 QRSD: 107 T: 149 QT: 415 QTc: 458 Interpretive Statements Sinus rhythm LVH with secondary repolarization abnormality Anterior Q waves, possibly due to LVH Compared to ECG 11/25/2019 13:54:10 Q waves now present Minor ST-T changes have occurred Electronically Signed On 03-26-2021 16:39:23 CDT by Rocky Sands [email or web address] <ELECTRONICALLY SIGNED> By: Rocky Sands MD, FAC 03/26/21 1639 57 57 Rocky Sands MD, [facility] /EPI
--- NOTE | 2021-03-26 18:51 | NUR ---
PT ALERT AND ORINETED TO SITUATION. VSS AFEBRILE. PT SLEPT MOST OF THE DAY SHE WOKE UP TO EAT ALL THREE MEALS. PT HAS NOT GOTTEN OUT OF BED EXCEPT TO GO TO THE BATHROOM. RIGHT CHEST PORT A CATH FLUSHES WELL POSIITIVE BLOOD RETURN NOTED. WILL CONTINUE TO MONITOR PLAN OF CARE.
[2021-03-26 21:02] VITALS: BP 175/58
[2021-03-27 04:12] LABS: WBC 5.9 thou/uL (4.0-11.0)
[2021-03-27 04:14] LABS: HEMATOCRIT 35.8 % (37.0-47.0); MCH 31.1 pg (26.0-34.0); MCHC 33.5 g/dL (28.0-37.0); MCV 92.8 fL (80.0-100.0); NUCLEATED RBCS 0 /100WBC; PLATELET COUNT* 232 thou/uL (150-400); RBC 3.86 mil/uL (4.20-5.00); RDW-CV 15.6 % (10.5-14.5)
[2021-03-27 04:23] LABS: CALCIUM 9.2 mg/dL (8.5-10.1); POTASSIUM 4.4 mmol/L (3.5-5.1)
--- NOTE | 2021-03-27 04:30 | NUR ---
PT SLEPT WELL THIS SHIFT. SHE REPORTED A HEADACHE AROUND 2100, TYLENOL GIVEN. SHE DID NOT REPORT ANY MORE PAIN, SOB, NAUSEA OR DISCOMFORT. SHE IS UP WITH ASSISTANCE AND GAITBELT AND CANE; ALERT AND ORIENTED; ROOM AIR. SHE RECEIVED ALL MEDS SCHEDULED. ILEOSTOMY IN PLACE. WILL CONTINUE TO MONITOR.
[2021-03-27 05:59] LABS: ABSOLUTE EOSINOPHILS 0.4 thou/uL (0.0-0.7); ABSOLUTE LYMPHOCYTES 1.9 thou/uL (0.8-5.3); ABSOLUTE MONOCYTES 0.4 thou/uL (0.0-1.2); ABSOLUTE NEUTROPHILS 3.2 thou/uL (1.6-8.1); ANISOCYTOSIS 1+; HYPOCHROMASIA 1+; PLATELET ESTIMATE ADEQUATE
[2021-03-27 06:00] LABS: LARGE PLATELETS OCCASIONAL
[2021-03-27 08:00] VITALS: BP 168/63
[2021-03-27 16:00] VITALS: BP 138/57
--- NOTE | 2021-03-27 17:55 | NUR ---
PATIENT RESTING IN BED, WATCHING TV. NO C/O PAIN/DISCOMFORT. BRUISING TO FEET. ILEOSTOMY INPLACE TO RIGHT LOWER ABDOMEN, DRAINING WITHOUT COMPLICATIONS. PORT TO RIGHT CHEST, PATENT, DRESSING C/D/I. BED IN LOW/LOCKED POSTION. CALL LIGHT WITHIN REACH. BLOOD SUGARS MONITORED. NO INSULIN ORDERED. NO QUESTIONS OR CONCERNS VOICED.
[2021-03-27 20:00] VITALS: BP 152/60
[2021-03-28 04:30] VITALS: BP 191/67
--- NOTE | 2021-03-28 07:40 | NUR ---
Alert and oriented x 4 but can be forgetful. She is up with assist x1,walker and gaitbelt. She wears briefs and is incontinent of urine. She has a ileostomy and she does self care. It appeared pretty full this am but she said it wasn't yet. She had tylenol at HS for headache. She prn hydralazine this am for HTN. She has slept well.
[2021-03-28 08:00] VITALS: BP 196/73
[2021-03-28 16:17] VITALS: BP 149/57
--- NOTE | 2021-03-28 17:45 | NUR ---
PATIENT RESTING IN BED. BED IN LOW/LOCKED POSITION, BED ALARM ON. CALL LIGHT WITHIN REACH. ILEOSTOMY TO LEFT LOWER ABDOMEN, PATENT, DRAINING TO DEPENDENT DRAINAGE. NO C/O PAIN/DISCOMFORT. NO QUESTINS OR CONCERNS VOICED.
[2021-03-28 20:30] VITALS: BP 150/68
--- NOTE | 2021-03-29 07:33 | NUR ---
Alert and oriented x 4. She is up to bathroom with gaitbelt and walker. She wears briefs and is incontinent at times. Vitals are stable. She did get 25 units of lantus at HS for blood sugar of 240. Tylenol was given for headache at HS. She has slept well.
[2021-03-29 08:00] VITALS: BP 193/92
[2021-03-29] MEDS ORDERED: CEFUROXIME500 MG PO (09:28)
[2021-03-29 09:30] VITALS: BP 158/64
[2021-03-29 11:47] VITALS: BP 158/64
--- NOTE | 2021-03-29 11:48 | NUR ---
Pt discharging to home today, faxed dc orders to [facility].
[2021-03-29 13:59] VITALS: BP 158/64
--- NOTE | 2021-03-29 14:16 | NUR ---
PATIENT DISCHARGE AT THIS TIME TO HOME VIA WHEELCHAIR TO PERSONAL VEHICLE ACCOMPANIED BY DAUGHTER AND GRANDDAUGHTER. PORT TO RIGHT CHEST DE-ACCESSED. GAUZE AND HYPAFIX APPLIED TO AREA. DISCHARGE INSTRUCTIONS REVIEWED WITH PATIENT AND DAUGHTER, ACKNOWLEDGED UNDERSTANDING. ALL QUESTIONS AND CONCERNS ADDRESSED.
[2021-03-29 14:17] VITALS: BP 158/64
== END 2021-03-29 14:18 | disposition home health service (06) | DRG 690 ==
LOC: M.ERS 21:45 → M.TBA-ER 23:33 → M.ORTHSURG 03-26 00:26
PROVIDERS: Emergency Medicine; Internal Medicine; ADMIT Internal Medicine; ATTEND Internal Medicine
DX: N39.0 Urinary tract infection, site not specified (principal); I10 Essential (primary) hypertension; K21.9 Gastro-esophageal reflux disease without esophagitis; E11.9 Type 2 diabetes mellitus without complications; M10.9 Gout, unspecified; B96.4 Proteus (mirabilis) (morganii) as the cause of diseases classified elsewhere; Z20.822 Contact with and (suspected) exposure to COVID-19; Z90.49 Acquired absence of other specified parts of digestive tract; Z85.038 Personal history of other malignant neoplasm of large intestine; Z79.4 Long term (current) use of insulin; Z79.899 Other long term (current) drug therapy; Z88.0 Allergy status to penicillin; Z93.2 Ileostomy status